=== PATIENT | male | born 2000 | race Caucasian/White ===

== ENCOUNTER 2019-12-18 18:05 | Emergency (ER) | payer OTHER ==
[~2019-12-18] VITALS: Ht 182.9 cm; Wt 106.6 kg
[2019-12-18] MEDS ORDERED: PRILOSEC OTC20 MG PO (18:58)
[2019-12-18] MEDS ORDERED: CARAFATE1 GM PO (19:09)
--- NOTE | 2019-12-18 19:45 | EKG ---
[facility] [address] [facility] [place], [place] [address] Signed Normal sinus rhythm Normal ECG No previous ECGs available Confirmed by JOLENE REYES MD [id number]) on 12/18/2019 7:45:40 PM Electronically Signed By: JOLENE REYES MD 12/18/19 194 PATIENT NAME: JOSÉ MIGUEL MILLER Electrocardiogram DATE OF : [birth year] PHYSICIAN: JOLENE REYES MD REPORT #: [id number] REPORT IS CONFIDENTIAL AND NOT TO BE RELEASED WITHOUT AUTHORIZATION
== END 2019-12-18 19:23 | disposition home or self-care (01) ==
LOC: ED 18:05
DX: K21.9 Gastro-esophageal reflux disease without esophagitis (principal); F17.200 Nicotine dependence, unspecified, uncomplicated
CPT/HCPCS: 71045; 80053; 83690; 85025; 93005; 93010; 99285-25

== ENCOUNTER 2022-04-07 17:40 | Emergency (ER) | payer OTHER ==
[~2022-04-07] VITALS: Ht 190.5 cm; Wt 97.5 kg
[~2022-04-07 17:40] MED LIST: CARAFATE1 GM PO; PRILOSEC OTC20 MG PO
[2022-04-07] MEDS ORDERED: HYDROCODON-ACE1 EA10 PO (19:59)
[2022-04-07] MEDS ORDERED: ONDANSETRON ODT8 MG PO (22:23)
== END 2022-04-07 22:35 | disposition home or self-care (01) ==
LOC: ED 17:40
DX: J10.1 Influenza due to other identified influenza virus with other respiratory manifestations (principal); F17.200 Nicotine dependence, unspecified, uncomplicated
CPT/HCPCS: 36415; 80053; 81001; 82150; 85025; 87502; 96361; 96374; 99284-25; A9270; J2405; J7030; U0003